=== PATIENT | female | born 1935 | race Caucasian/White ===

== ENCOUNTER 2017-09-20 19:32 | Observation (INO) | payer OTHER, MEDICAID ==
[~2017-09-20] VITALS: Ht 154.9 cm; Wt 53.6 kg
[~2017-09-20 19:32] MED LIST: APAP/HYDROCODON1 T13 PO; ATENOLOL25 MG PO; BAY PO; BUPROPION HCL150 MG PO; COL100 PO; COZAAR50 MG PO; KEFLEX500 MG PO; LAC PO; LEVOTHYROXIN0.075 M2 PO; NOR5 PO; OYSCO 500500 M1 PO; PRI20 PO; SIMVASTATIN20 M1 PO; TRAZODONE50 M1 PO; TRIAMTERENE; [UNRECOGNIZED DRUG - OTHER]
[2017-09-20 21:09] LABS: BASOPHIL % 0.1 % (0-2)
[2017-09-20 21:18] LABS: PLATELET COUNT 48 x10^3mcL (130-400)
[2017-09-20 21:20] LABS: CALCIUM 9.2 mg/dL (8.5-10.1); CARBON DIOXIDE 28.2 mmol/L (21-32); CHLORIDE SERUM 105 mmol/L (98-107); CREATININE SERUM 0.9 mg/dL (0.6-1.0); GLUCOSE SERUM 112 mg/dL (74-106); SODIUM SERUM 140 mmol/L (136-145)
[2017-09-20 21:31] LABS: ALBUMIN 3.6 g/dL (3.4-5.0); ALKALINE PHOSPHATASE 61 U/L (46-116); ALT/SGPT 28 U/L (14-59); AST/SGOT 18 U/L (15-37); BILIRUBIN TOTAL 0.2 mg/dL (0.20-1.00); LIPASE 144 IU/L (73-393); TOTAL PROTEIN, SERUM 6.8 g/dL (6.4-8.2); TRIGLYCERIDES 88 mg/dL (<150)
[2017-09-20 21:32] LABS: CHOLESTEROL 245 mg/dL (<200); CHOLESTEROL/HDL RATIO 2.5; HDL CHOLESTEROL 100 mg/dL (40-60); T3 TOTAL 0.93 ng/mL
[2017-09-20 22:06] LABS: FREE T4 1.22 ng/dL (0.76-1.46); T4(THYROXINE) 10.6 ug/dL (4.7-13.3)
[2017-09-20 22:13] LABS: microscopic required? YES; urine erythrocyte NEGATIVE (NEGATIVE)
[2017-09-20 23:10] LABS: PHOSPHOROUS 3.7 mg/dL (2.5-4.9)
[2017-09-20 23:48] LABS: AMPHETAMINE QUAL UR NONE DETECTED (NEG <=1000)
[2017-09-20 23:54] VITALS: BP 144/57
[2017-09-21] MEDS ORDERED: LISINOPRIL20 MG PO (01:13)
[2017-09-21] MEDS ORDERED: ALENDRONATE SOD70 M2 PO (01:14)
[2017-09-21] MEDS ORDERED: OSCD PO (01:14)
[2017-09-21 03:58] VITALS: BP 131/57
[2017-09-21 06:54] LABS: BASOPHIL % 0.4 % (0-2)
[2017-09-21 07:03] LABS: PLATELET COUNT 36 x10^3mcL (130-400); RED CELL DISTRIBUTION WIDTH 14.6 % (11.5-14.5)
[2017-09-21 07:14] LABS: CALCIUM 8.9 mg/dL (8.5-10.1); CARBON DIOXIDE 28.4 mmol/L (21-32); CHLORIDE SERUM 106 mmol/L (98-107); CREATININE SERUM 0.9 mg/dL (0.6-1.0); GLUCOSE SERUM 98 mg/dL (74-106); POTASSIUM SERUM 3.9 mmol/L (3.5-5.1); SODIUM SERUM 142 mmol/L (136-145)
[2017-09-21 08:30] VITALS: BP 109/51
[2017-09-21 08:37] VITALS: BP 109/51
[2017-09-21 13:24] VITALS: BP 89/56
[2017-09-21] MEDS ORDERED: MAC100 PO (13:53)
[2017-09-21] MEDS ORDERED: LAC PO (13:53)
[2017-09-21 15:02] VITALS: BP 135/60
[2017-09-21 15:07] VITALS: BP 135/60
== END 2017-09-21 16:19 | disposition home or self-care (01) | DRG 205 ==
LOC: ED 19:32 → DU 22:24
PROVIDERS: Family Medicine Sports Medicine; Specialist
DX: M94.0 Chondrocostal junction syndrome [Tietze] (principal); N17.0 Acute kidney failure with tubular necrosis; N39.0 Urinary tract infection, site not specified; E86.0 Dehydration; D69.6 Thrombocytopenia, unspecified; R73.03 Prediabetes; I10 Essential (primary) hypertension; G47.00 Insomnia, unspecified; F32.9 Major depressive disorder, single episode, unspecified; E78.5 Hyperlipidemia, unspecified; E03.9 Hypothyroidism, unspecified; D64.9 Anemia, unspecified; M81.0 Age-related osteoporosis without current pathological fracture; M54.5 Low back pain; G89.29 Other chronic pain; Z68.22 Body mass index [BMI] 22.0-22.9, adult
CPT/HCPCS: 83880; 84439; G0378; J0696; J7030; Q0092